=== PATIENT | male | born 1995 | race Caucasian/White ===

== ENCOUNTER 2025-08-06 14:29 | Emergency (ER) | payer OTHER ==
[~2025-08-06] VITALS: Ht 190.5 cm; Wt 115.4 kg
[~2025-08-06 14:29] MED LIST: CEFTIN500 MG PO; KEFLEX250 MG
[2025-08-06] MEDS ORDERED: BACTRIM DS TAB1 EACH PO (16:07)
[2025-08-06] MEDS ORDERED: MUPIROCIN22 GM TOP (16:07)
[2025-08-06] MEDS: TRIMETHOPRIM/SULFAMETHOXAZOLE 160-800 MG TAB PO ONE (16:14)
[2025-08-06 16:19] VITALS: PULSE 76; RESP 16; TEMP 97.8; O2SAT 98
== END 2025-08-06 16:19 | disposition home or self-care (01) ==
LOC: FSED 16:05
DX: L03.116 Cellulitis of left lower limb (principal); W22.8XXA Striking against or struck by other objects, initial encounter; Y99.0 Civilian activity done for income or pay
CPT/HCPCS: 99283